=== PATIENT | female | born 1945 | race Caucasian/White ===

== ENCOUNTER 2018-01-08 09:47 | Day surgery (SDC) | payer OTHER ==
[2018-01-07 13:27] VITALS: BMI 39.1
--- NOTE | 2018-01-08 07:23 | HP ---
History & Physical Update - History History: No Change - Physical Physical: No Change - Assessment Assessment: No Change - Plan Plan: No Change (Initial H&P is located in patient's paper chart. Here today for elective L4-S1 laminectomy. No new complaints or medications.)
[2018-01-08] MEDS ORDERED: oxyCODONE HCL 10 MG SUSTAINED ACTING TABLET PO STA (10:23)
[2018-01-08] MEDS ORDERED: GABAPENTIN 300 MG CAPSULE (FP) PO STA (10:23)
[2018-01-08] MEDS ORDERED: ONDANSETRON 4 MG/2 ML VIAL IVPUSH PRN (11:27)
[2018-01-08] MEDS ORDERED: oxyCODONE HCL 5 MG TABLET PO PRN (11:27)
[2018-01-08] MEDS ORDERED: LACTATED RINGERS SOLUTION 1,000 ML IV SCH (11:30)
[2018-01-08] MEDS ORDERED: DEXAMETHASONE SOD PHOSPHATE/PF 10 MG/ML SDV ONE ×2 (13:26→15:11)
[2018-01-08] MEDS ORDERED: MIDAZOLAM HCL 2 MG/2 ML SINGLE DOSE VIAL ONE (13:26)
[2018-01-08] MEDS ORDERED: BUPIVACAINE HCL/PF (5 MG/ML) 30 ML VIAL IJ ONE (13:26)
[2018-01-08] MEDS ORDERED: LIDOCAINE 1%/EPI 1:100000 (20 ML MULTI DOSE VIAL) ONE (13:38)
[2018-01-08] MEDS ORDERED: THROMBIN (BOVINE) 5,000 UNIT VIAL TP ONE ×2 (13:38→15:20)
[2018-01-08] MEDS ORDERED: BUPIVACAINE HCL 0.25% 125 MG/50 ML VIAL ONE (13:38)
[2018-01-08] MEDS ORDERED: methylPREDNISolone ACET (DEPO) 40 MG/1 ML VIAL ONE (13:38)
[2018-01-08] MEDS ORDERED: SODIUM CHLORIDE 0.9% P/F 10 ML VIAL IJ ONE (14:52)
[2018-01-08] MEDS ORDERED: DEXAMETHASONE SOD PHOSPHATE 4 MG/1 ML VIAL ONE (14:52)
[2018-01-08] MEDS ORDERED: ONDANSETRON 4 MG/2 ML VIAL ONE (14:52)
[2018-01-08] MEDS ORDERED: ceFAZolin SODIUM 1 GM VIAL ONE (14:52)
[2018-01-08] MEDS ORDERED: ePHEDrine SULFATE 50 MG/1 ML AMPULE ONE (15:17)
--- NOTE | 2018-01-08 16:34 | SURG ---
Surgery Assistant Business Manager Note Assistant Business Manager: Jaxon Oleary PA-C Date of Service: 01/08/18 Diagnosis: L4-S1 spinal stenosis with radiculopathy Procedure: L4-S1 bilateral laminectomy I was present for the entirety of the operative procedure. For further detail, please refer to operative report. Visit type - Case Type Case Type: Scheduled - New patient This patient is new to me today: Yes Date on this admission: 01/08/18
--- NOTE | 2018-01-08 16:34 | OP ---
Operative Note - Note: Operative Date: 01/08/18 Pre-Operative Diagnosis: L4-S1 spinal stenosis with radiculopathy Operation: L4-S1 bilateral laminectomy Post-Operative Diagnosis: Same as Pre-op Surgeon: Rafael Mayorga Rehabilitation Program Manager: Jaxon Oleary Anesthesiologist/[employer] OPERATOR: Nitish Patton Anesthesia: Spinal Estimated Blood Loss (mls): 25 Fluid Volume Replaced (mls): 1,200 Operative Report Dictated: Yes
[2018-01-08 18:44] VITALS: BP 142/60; PULSE 77; TEMP 97.8
--- NOTE | 2018-01-08 19:49 | OP ---
DATE OF OPERATION: 01/08/2018 PREOPERATIVE DIAGNOSIS: Spinal stenosis, L4-5, L5-S1. POSTOPERATIVE DIAGNOSIS: Spinal stenosis, L4-5, L5-S1. PROCEDURE PERFORMED: Laminectomy L4-S1. SURGEON: Rafael Mayorga M.D. PASSENGER REPRESENTATIVE: Naren Hardy ESTIMATED BLOOD LOSS: 50 mL INTRAVENOUS FLUIDS: Per anesthesia. ANESTHESIA: Spinal/TLIP. COMPLICATIONS: There were none. DISPOSITION: Patient brought to the PACU in stable condition. INDICATION FOR SURGERY: The patient is a 72-year-old female who has been suffering from pain from her back down her leg. X-rays and MRI were completed, which noted she has spinal stenosis from L4 to S1. She had gone through an exhaustive course of treatment for this which included medications, physical therapy, as well as injections. Unfortunately, the pain continued to persist in spite of all this. At this point, risks, benefits, and alternatives were discussed and the patient consented to surgery. OPERATIVE NOTE: Patient is brought to the operating room by the anesthesia staff. After appropriate patient identification is performed, spinal anesthesia was given along with the TLIP block. The patient was able to position herself prone onto the OR table with all areas of bony prominences well padded at this time. Two needles were placed into her back to sandrita off the L4-S1 segment, and x-ray is taken to confirm this is correct. Milnor were removed, and 10 mL of lidocaine with epinephrine was injected into her back at this time. Her back was prepped and draped in a sterile manner. At this point timeout was completed. An incision was made from the top of L4 down to the bottom of S1. Dissection was carried down to the fascia. Fascia was then split open at this time, and appropriate retractors were then placed in. Then a spinal needle was placed onto the L4 lamina to sandrita off the L4-5 level. An x-ray was taken to confirm this was correct. The needle was removed, and the interspinous ligament at L4-5 and L5-S1 were removed. The spinous process of L5 was removed. The lamina of L5 was removed and complete decompression was performed such that by the end of the procedure, the L5 and S1 nerve roots appear to be well decompressed. All bleeding was well controlled at this time. Steroids were placed over the nerve root, Floseal was placed over that. The fascia was closed with a number 1 Vicryl suture. The subcutaneous tissue was closed with 2-0 Vicryl suture. Skin was closed with 3-0 Monocryl suture. Dermabond was applied. Steri-Strips were applied. Sterile dressing was applied. Patient was placed supine on OR bed, and brought to the PACU in stable condition. Jonas JIMÉNEZ/[id number]
== END 2018-01-08 18:42 | disposition home or self-care (01) ==
LOC: FASU 09:47
PROVIDERS: ATTEND Orthopaedic Surgery Orthopaedic Surgery of the Spine
PROC: 01NB0ZZ Release Lumbar Nerve, Open Approach (ICD-10-PCS; principal; 2018-01-08 15:28)
DX: M48.061 Spinal stenosis, lumbar region without neurogenic claudication (principal); M48.07 Spinal stenosis, lumbosacral region
CPT/HCPCS: 72100-TC-FY; 76000-TC-FY; 94760